=== PATIENT | female | born 1975 | race African-American/Black ===

== ENCOUNTER 2019-06-14 05:34 | Day surgery (SDC) ==
[2019-06-11 12:26] LABS: Basophils % 0.5 % (0.0-0.8); Eosinophils # 0.1 10*3/uL (0.0-0.87); Eosinophils % 1.8 % (0.00-10.9); Hematocrit 45.5 VOL% (35.7-47.0); Hemoglobin 14.5 GM/DL (12.0-16.0); Immature Granulocytes % 0.4 %; Immature Granulocytes Absolute 0.02 #; Lymphocytes # 2.3 10*3/uL (1.4-4.0); Lymphocytes % 40.1 % (21.3-54.2); Mean Corpuscular HGB Conc 31.9 GM/DL (32-36); Mean Corpuscular Volume 84.3 FL (87-102); Mean Platelet Volume 12.4 FL (9.6-12.0); Monocytes % 7.8 % (1.7-12.7); Neutrophils % 49.4 % (38.7-73.9); Platelet Count 175 T/CUMM (130-400); Red Cell Distribution Width 15.3 % (9.3-17.3); White Blood Count 5.6 T/CUMM (4-12)
[2019-06-11 12:35] LABS: Apearance,Urine CLEAR (Clear); Bilirubin,Urine Negative (Negative); Blood, Urine Negative (Negative); Glucose,Urine (UA) >=500 mg/dL (Negative); Ketones,Urine Negative (Negative); Mucus,Urine Occasional /LPF (Occasional); Nitrite,Urine Negative (Negative); Protein,Urine Negative; RBC,Urine 1 /HPF (0-4); Squamous Epithelial Cell,Urine Occasional /HPF (0-10); Urine Color Yellow (Yellow); Urine Urobilinogen < 2.0 EU/DL (0.2-1.0); WBC,Urine <1 /HPF (0-6)
[2019-06-11 12:56] LABS: Albumin 3.1 G/DL (3.4-5.0); Bilirubin,Total 0.4 MG/DL (0.2-1.0); Calcium 9.1 MG/DL (8.5-10.1); Osmolality,Calculated 278.7 MOS/KG (273-304); Risk Ratio 3.02; Total Protein 7.4 G/DL (6.4-8.3); VLDL CHOLESTEROL 21.8 MG/DL
[2019-06-11 13:46] LABS: HIV Antigen/Antibody Result Nonreactive (Nonreactive)
[~2019-06-14 05:34] MED LIST: AMPICILLIN/SULBACTAM 3,000 MG in SODIUM CHLORIDE 0.9% 100 ML IV ONE
[2019-06-14] MEDS ORDERED: AMPICILLIN/SULBACTAM 3,000 MG in SODIUM CHLORIDE 0.9% 100 ML IV ONE (06:00)
[2019-06-14] MEDS: LACTATED RINGERS 1,000 ML IV SCH ×4 (08:14→13:31)
[2019-06-14] MEDS ORDERED: DIAZEPAM 5 MG TABLET PO ONE (08:38)
[2019-06-14] MEDS ORDERED: FAMOTIDINE 20 MG TABLET PO ONE (08:38)
[2019-06-14] MEDS ORDERED: DIAZEPAM 5 MG TABLET ONE (08:47)
[2019-06-14] MEDS ORDERED: FAMOTIDINE 20 MG TABLET ONE (08:48)
[2019-06-14] MEDS ORDERED: SUGAMMADEX 200 MG/2 ML VIAL IV ONE (12:46)
[2019-06-14] MEDS ORDERED: BISACODYL 10 MG SUPP RECTAL PRN ×2 (13:25→16:06)
[2019-06-14] MEDS ORDERED: ACETAMINOPHEN 325 MG TABLET PO PRN ×2 (13:25→16:06)
[2019-06-14] MEDS ORDERED: DOCUSATE SODIUM 100 MG CAPSULE PO PRN ×2 (13:25→16:06)
[2019-06-14] MEDS ORDERED: BENZOCAINE/MENTHOL LOZENGE 18/BOX PO PRN ×2 (13:25→16:06)
[2019-06-14] MEDS ORDERED: ONDANSETRON 4 MG/2 ML VIAL IV PRN ×3 (13:25→16:06)
[2019-06-14] MEDS ORDERED: LACTATED RINGERS 1,000 ML IV SCH ×2 (13:30→16:06)
[2019-06-14 13:48] LABS: Apearance,Urine CLEAR (Clear); Bacteria,Urine Occasional /HPF (Few); Bilirubin,Urine Negative (Negative); Blood, Urine Negative (Negative); Glucose,Urine (UA) 50 mg/dL (Negative); Ketones,Urine 20 mg/dL (Negative); Mucus,Urine Occasional /LPF (Occasional); Nitrite,Urine Negative (Negative); Protein,Urine Negative; RBC,Urine 4 /HPF (0-4); Squamous Epithelial Cell,Urine Occasional /HPF (0-10); Urine Color Yellow (Yellow); Urine Specific Gravity 1.021 (1.001-1.035); Urine Urobilinogen < 2.0 EU/DL (0.2-1.0); WBC,Urine 3 /HPF (0-6)
[2019-06-14] MEDS ORDERED: fentaNYL 100 MCG/2 ML VIAL ONE (13:51)
[2019-06-14] MEDS ORDERED: LABETALOL 20 MG/4 ML SYRINGE IV ONE (13:51)
[2019-06-14] MEDS ORDERED: LIDOCAINE 2% 5 ML VIAL ONE (13:51)
[2019-06-14] MEDS ORDERED: SEVOFLURANE 1 UNIT/15 MINUTE INH ONE (13:51)
[2019-06-14] MEDS ORDERED: PROPOFOL 200 MG/20 ML VIAL IV ONE (13:51)
[2019-06-14] MEDS ORDERED: ACETAMINOPHEN 1,000 MG/100 ML VIAL IV ONE (13:52)
[2019-06-14] MEDS ORDERED: SUCCINYLCHOLINE 200 MG/10 ML VIAL ONE (13:52)
[2019-06-14] MEDS ORDERED: ROCURONIUM 100 MG/10 ML VIAL IV ONE (13:52)
[2019-06-14] MEDS ORDERED: DEXAMETHASONE 4 MG/1 ML VIAL ONE (13:52)
[2019-06-14] MEDS: HYDROmorphone 2 MG/1 ML VIAL IV PRN ×3 (13:59→14:15)
[2019-06-14] MEDS ORDERED: HYDROmorphone 2 MG/1 ML VIAL ONE (14:00)
[2019-06-14] MEDS ORDERED: MEPERIDINE 25 MG/1 ML VIAL IV PRN (14:24)
[2019-06-14] MEDS ORDERED: KETOROLAC 30 MG/1 ML VIAL IV ONE (14:31)
[2019-06-14] MEDS ORDERED: KETOROLAC 60 MG/2 ML VIAL IM ONE (14:32)
[2019-06-14] MEDS ORDERED: KETOROLAC 30 MG/1 ML VIAL IM ONE (14:32)
[2019-06-14] MEDS ORDERED: MAGNESIUM HYDROXIDE SUSP 30 ML UDCUP PO PRN (16:06)
[2019-06-14] MEDS ORDERED: IBUPROFEN 800 MG TABLET PO PRN (16:06)
[2019-06-14] MEDS ORDERED: NALOXONE 0.4 MG/ML VIAL IV PRN (16:48)
[2019-06-14] MEDS ORDERED: HYDROmorphone PCA 30 MG/30 ML SYRINGE IV ONE (17:09)
[2019-06-14] MEDS: HYDROmorphone PCA 30 MG/30 ML SYRINGE IV SCH (17:45)
[2019-06-14] MEDS ORDERED: ceFAZolin 1,000 MG in SYRINGE 1 EACH IV SCH (19:30)
[2019-06-14] MEDS: ceFAZolin 1,000 MG in SYRINGE 1 EACH IV SCH (20:32)
[2019-06-15] MEDS: ceFAZolin 1,000 MG in SYRINGE 1 EACH IV SCH (04:40)
[2019-06-15] MEDS ORDERED: SODIUM CHLORIDE 0.9% 100 ML IV ONE (04:45)
[2019-06-15] MEDS ORDERED: INFLUENZA VIRUS VACCINE 0.5 ML SYRINGE IM ONE (04:54)
[2019-06-15 05:37] LABS: Basophils % 0.1 % (0.0-0.8); Hematocrit 43.7 VOL% (35.7-47.0); Hemoglobin 13.5 GM/DL (12.0-16.0); Immature Granulocytes % 0.4 %; Immature Granulocytes Absolute 0.03 #; Lymphocytes # 1.4 10*3/uL (1.4-4.0); Mean Corpuscular HGB Conc 30.9 GM/DL (32-36); Mean Corpuscular Volume 85.7 FL (87-102); Mean Platelet Volume 12.5 FL (9.6-12.0); Monocytes % 9.8 % (1.7-12.7); Neutrophils % 72.7 % (38.7-73.9); Platelet Count 187 T/CUMM (130-400); Red Cell Distribution Width 15.9 % (9.3-17.3); White Blood Count 8.1 T/CUMM (4-12)
[2019-06-15] MEDS: HYDROmorphone PCA 30 MG/30 ML SYRINGE IV SCH (06:59)
[2019-06-15] MEDS: SIMETHICONE CHEW 80 MG TABLET PO PRN ×3 (09:31→20:36)
[2019-06-15] MEDS: MAGNESIUM HYDROXIDE SUSP 30 ML UDCUP PO PRN ×2 (09:31→20:36)
[2019-06-15] MEDS: METOCLOPRAMIDE 10 MG/2 ML VIAL IV SCH ×2 (09:31→16:03)
[2019-06-15] MEDS: oxyCODONE/ACETAMINOPHEN 5-325 MG TABLET PO PRN ×2 (09:54→15:56)
[2019-06-15] MEDS: IBUPROFEN 800 MG TABLET PO PRN (09:56)
[2019-06-16] MEDS: IBUPROFEN 800 MG TABLET PO PRN (00:45)
[2019-06-16] MEDS ORDERED: METOCLOPRAMIDE 10 MG TABLET PO SCH (01:00)
[2019-06-16 09:09] VITALS: BP 145/84
== END 2019-06-16 09:50 | disposition home or self-care (01) ==
LOC: N.SDSINP 05:34 → N.OR 05:34 → N.SDSINP 05:35 → N.OB 15:10 → N.OR 06-16 09:50
PROVIDERS: ATTEND Obstetrics & Gynecology